=== PATIENT | female | born 1995 | race Two or more races ===

== ENCOUNTER 2024-04-17 09:19 | Outpatient (CLI) | payer OTHER | END 2024-04-17 09:37 | disposition home or self-care (01) | LOC: RX STUDY 09:19 | DX: N70.11 Chronic salpingitis (principal) ==

== ENCOUNTER 2024-08-12 09:27 | Outpatient (CLI) | payer OTHER | END 2024-08-12 09:28 | disposition home or self-care (01) | LOC: PRENATAL 09:27 | PROVIDERS: ATTEND Obstetrics & Gynecology Maternal & Fetal Medicine | DX: O36.80X0 Pregnancy with inconclusive fetal viability, not applicable or unspecified (principal); Z36.82 Encounter for antenatal screening for nuchal translucency; O34.40 Maternal care for other abnormalities of cervix, unspecified trimester; Z36.9 Encounter for antenatal screening, unspecified; Z14.8 Genetic carrier of other disease; Z3A.12 12 weeks gestation of pregnancy ==

== ENCOUNTER 2024-10-05 12:39 | Outpatient (CLI) | payer OTHER | END 2024-10-05 12:40 | disposition home or self-care (01) | LOC: PRENATAL 12:39 | PROVIDERS: ATTEND Obstetrics & Gynecology Maternal & Fetal Medicine | DX: O44.00 Complete placenta previa NOS or without hemorrhage, unspecified trimester (principal); O34.40 Maternal care for other abnormalities of cervix, unspecified trimester; Z3A.20 20 weeks gestation of pregnancy ==

== ENCOUNTER 2024-11-30 08:58 | Outpatient (CLI) | payer OTHER | END 2024-11-30 08:59 | disposition home or self-care (01) | LOC: PRENATAL 08:58 | PROVIDERS: ATTEND Obstetrics & Gynecology Maternal & Fetal Medicine | DX: O26.849 Uterine size-date discrepancy, unspecified trimester (principal); O44.00 Complete placenta previa NOS or without hemorrhage, unspecified trimester; O34.40 Maternal care for other abnormalities of cervix, unspecified trimester; Z3A.28 28 weeks gestation of pregnancy ==

== ENCOUNTER 2025-02-10 08:46 | Inpatient (IN) | payer OTHER ==
[~2025-02-10] VITALS: Ht 154.9 cm; Wt 73.9 kg
[2025-02-10] VITALS (10 sets, daily range): BP systolic 106–137; BP diastolic 41–79; O2SAT 100
[2025-02-10] MEDS ORDERED: RINGERS SOLUTION,LACTATED 1,000 ML IV SCH (09:15)
[2025-02-10 09:40] LABS: HEMATOCRIT 35.7 % (36.0-45.00); HEMOGLOBIN 12.1 g/dL (12.0-15.00); MEAN CELL VOLUME 89.1 fL (80.00-100.00); MEAN CORPUSCULAR HEMOGLOBIN 30.1 pg (27.00-32.0); MEAN CORPUSCULAR HGB CONC 33.8 g/dl (32.0-36.0); PLATELET COUNT 219 K/uL (150-450); RED BLOOD COUNT 4.01 M/uL (4.00-6.00); RED CELL DISTRIBUTION WIDTH 14.8 % (11.5-14.5)
[2025-02-10 09:48] LABS: URINE APPEARANCE Cloudy; URINE BILIRRUBIN Negative (NEGATIVE); URINE BLOOD Moderate; URINE COLOR Yellow; URINE GLUCOSE Negative (NEGATIVE); URINE KETONE Negative (NEGATIVE); URINE LEUKOCYTE Trace; URINE NITRATE Negative; URINE PROTEIN Negative (NEGATIVE); URINE UROBILINOGEN 0.2 E.U./dl
[2025-02-10 09:51] LABS: URINE RBC 61.8 uL (0.0-20.8); URINE WBC 145.4 uL (0.0-23.2)
[2025-02-10 10:08] LABS: URINE BACTERIA > 9821.5 uL (0.0-1933); URINE CAST 0.58 uL (0.0-1.40)
[2025-02-10] MEDS ORDERED: CEFAZOLIN SODIUM 1,000 MG VIAL IV SCH (14:00)
[2025-02-10] MEDS ORDERED: OXYTOCIN 20 UNITS/500ML RL PIGGYBAG IV ONE (17:08)
[2025-02-10] MEDS ORDERED: OXYTOCIN 20 UNITS/500ML RL PIGGYBAG IV SCH (17:15)
[2025-02-10] MEDS ORDERED: MORPHINE SULFATE 4 MG/ML CARTRIDGE IV STA (18:38)
[2025-02-10] MEDS ORDERED: ERYTHROMYCIN BASE OPHT 1GM EACH TUBE OP ONE ×2 (19:57→23:00)
[2025-02-10] MEDS ORDERED: OXYTOCIN 20 UNITS/1000ML RL PIGGYBAG IV ONE (19:57)
[2025-02-10] MEDS ORDERED: CHLORHEXIDINE GLUCONATE 120 ML BOTTLE TOP ONE (19:58)
[2025-02-10] MEDS ORDERED: LIDOCAINE HCL 1% 10ML VIAL ONE (19:59)
[2025-02-10] MEDS ORDERED: OXYTOCIN 1,000 ML IV SCH (23:00)
[2025-02-10] MEDS ORDERED: CHLORHEXIDINE GLUCONATE 120 ML BOTTLE TP SCH (23:00)
[2025-02-10] MEDS ORDERED: ACETAMINOPHEN 500 MG GEL..CAP PO PRN (23:00)
[2025-02-10] MEDS ORDERED: LIDOCAINE HCL 1% 10ML VIAL IJ ONE (23:00)
[2025-02-11 00:40] VITALS: BP 130/65
[2025-02-11 02:15] LABS: HEMATOCRIT 33.1 % (36.0-45.00); MEAN CELL VOLUME 87.8 fL (80.00-100.00); MEAN CORPUSCULAR HEMOGLOBIN 29.8 pg (27.00-32.0); PLATELET COUNT 207 K/uL (150-450); RED BLOOD COUNT 3.78 M/uL (4.00-6.00); RED CELL DISTRIBUTION WIDTH 14.9 % (11.5-14.5)
[2025-02-11 02:17] LABS: HEMOGLOBIN 11.3 g/dL (12.0-15.00)
[2025-02-11 08:50] VITALS: BP 103/62
[2025-02-11] MEDS ORDERED: PNV,CALCIUM 72/IRON/FOLIC ACID 1 TAB TABLET PO SCH (09:00)
[2025-02-11 16:11] VITALS: BP 119/74
[2025-02-11 20:39] VITALS: BP 117/60
[2025-02-12 01:00] VITALS: BP 135/55
[2025-02-12 08:00] VITALS: BP 121/52
== END 2025-02-12 13:22 | disposition home or self-care (01) | DRG 807 ==
LOC: OBS/DEL 08:46 → LDR 16:41 → OB/GYN 22:44
PROVIDERS: Obstetrics & Gynecology; ADMIT Obstetrics & Gynecology; ATTEND Obstetrics & Gynecology
PROC: 10E0XZZ Delivery of Products of Conception, External Approach (ICD-10-PCS; principal; 2025-02-10)
PROC: 0HQ9XZZ Repair Perineum Skin, External Approach (ICD-10-PCS; 2025-02-10)
PROC: 4A1HXCZ Monitoring of Products of Conception, Cardiac Rate, External Approach (ICD-10-PCS; 2025-02-10)
DX: O70.0 First degree perineal laceration during delivery (principal); Z37.0 Single live birth; Z3A.38 38 weeks gestation of pregnancy